=== PATIENT | male | born 1965 | race American Indian/Alaskan Native ===

== ENCOUNTER 2020-12-06 19:50 | Emergency (ER) | payer SELFPAY ==
[2020-12-07 01:46] VITALS: BP 133/77
[2020-12-07 01:53] LABS: Bilirubin,Urine NEG (Negative); Blood,Urine SM (Negative); Color,Urine Yellow (Yellow); Mucus,Urine FEW /HPF; Protein,Urine <15 mg/dL mg/dL (Negative); RBC,Urine < 1.0 /HPF (0.0-6.0); Urobilinogen,Urine < 2.0 mg/dL (<2.0); WBC,Urine < 1.0 /HPF (0.0-6.0)
[2020-12-07 01:59] LABS: Amphetamine Screen,Urine Negative; Benzodiazepines Screen,Urine Negative; Cannabinoid Screen,Urine Negative; Cocaine Screen,Urine Negative; Methadone Screen,Urine Negative; Opiate Screen,Urine Negative
[2020-12-07 02:33] LABS: Blood Urea Nitrogen 5 mg/dL (9-20); Calcium 9.8 mg/dL (8.4-10.2); Hemolysis Index 7
[2020-12-07 02:48] LABS: BUN/Creatinine Ratio 8; Basophils # (Auto) 0.1 K/mm3 (0.0-0.1); Eosinophils # (Auto) 0.4 K/mm3 (0.0-0.4); Eosinophils % (Auto) 5.4 % (0.0-4.3); Lymphocytes # (Auto) 2.2 K/mm3 (1.2-5.4); Lymphocytes % (Auto) 30.1 % (13.4-35.0); Mean Corpuscular HGB Conc 36 % (32-34); Mean Corpuscular Volume 92 fl (84-94); Monocytes # (Auto) 0.8 K/mm3 (0.0-0.8); Monocytes % (Auto) 10.9 % (0.0-7.3); Platelet Count 249 K/mm3 (140-440); Red Blood Count 5.11 M/mm3 (3.65-5.03)
--- NOTE | 2020-12-07 03:12 | Emergency Department Report ---
ED Medical Clearance HPI - General Chief complaint: Medical Clearance Stated complaint: DETOX Source: patient Mode of arrival: Ambulatory - History of Present Illness Initial comments: Patient is a 55-year-old white male with a history of hypertension, hyperlipidemia, chronic alcohol abuse, anxiety and depression who presents to the ED for medical clearance in order to be admitted for alcohol detox program at the [facility]. Patient states that he already has an admission at the facility and was advised to come to the ED for medical clearance prior his start of the detox program. Patient denies chest pain, shortness of breath, fever, chills, cough, headache, dizziness, syncope, traumatic injury, suicidal or homicidal ideations or hallucinations. Complaint: medical clearance request (For alcohol detox program) -: Gradual, year(s) (Chronic many years) Reason for Medical Clearance: intoxication, psychiatric condition (Chronic alcohol abuse) Place: home Alledged Intoxication: Yes Compliant with Home Medications: No Traumatic Symptoms: denies traumatic injury Associated Symptoms: denies: chest pain, shortness of breath, palpitations, diaphoresis, denies other symptoms, confusion, cough, headaches, anorexia Treatments Prior to Arrival: none Allergies/Adverse reactions: Allergies Allergy/AdvReac Type Severity Reaction Status Date / Time No Known Allergies Allergy Unverified 12/07/20 01:27 ED Review of Systems ROS: Stated complaint: DETOX Other details as noted in HPI Constitutional: denies: chills, fever Eyes: denies: eye pain, eye discharge, vision change ENT: denies: ear pain, throat pain Respiratory: denies: cough, shortness of breath, wheezing Cardiovascular: denies: chest pain, palpitations Endocrine: no symptoms reported Gastrointestinal: denies: abdominal pain, nausea, vomiting, diarrhea Genitourinary: denies: urgency, dysuria Musculoskeletal: denies: back pain, joint swelling, arthralgia Skin: denies: rash, lesions Neurological: denies: headache, weakness, paresthesias Psychiatric: anxiety, other (Chronic alcohol abuse). denies: depression Hematological/Lymphatic: denies: easy bleeding, easy bruising ED Past Medical Hx - Past Medical History Previous Medical History?: Yes Hx Hypertension: Yes Hx Psychiatric Treatment: Yes (Chronic alcohol abuse and anxiety) Additional medical history: hyperlipidemia - Surgical History Past Surgical History?: No - Social History Smoking Status: Current Every Day Smoker Substance Use Type: Alcohol ED Physical Exam - General Limitations: No Limitations General appearance: alert, in no apparent distress - Head Head exam: Present: atraumatic, normocephalic, normal inspection - Eye Eye exam: Present: normal appearance, PERRL, EOMI Pupils: Present: normal accommodation - ENT ENT exam: Present: normal exam, normal orophraynx, mucous membranes moist, TM's normal bilaterally, normal external ear exam - Neck Neck exam: Present: normal inspection, full ROM - Respiratory Respiratory exam: Present: normal lung sounds bilaterally. Absent: respiratory distress, wheezes, rales, rhonchi, chest wall tenderness, accessory muscle use, decreased breath sounds, prolonged expiratory - Cardiovascular Cardiovascular Exam: Present: regular rate, normal rhythm, normal heart sounds. Absent: systolic murmur, diastolic murmur, rubs, gallop - GI/Abdominal GI/Abdominal exam: Present: soft, normal bowel sounds. Absent: tenderness, hyperactive bowel sounds, hypoactive bowel sounds - Extremities Exam Extremities exam: Present: normal inspection, full ROM, normal capillary refill - Back Exam Back exam: Present: normal inspection, full ROM. Absent: tenderness, CVA tenderness (R), CVA tenderness (L), muscle spasm, paraspinal tenderness, vertebral tenderness - Neurological Exam Neurological exam: Present: alert, oriented X3, CN II-XII intact, normal gait, reflexes normal - Psychiatric Psychiatric exam: Present: normal mood, anxious, flat affect - Skin Skin exam: Present: warm, dry, intact, normal color. Absent: rash ED Course Vital Signs 12/07/20 01:24 Temperature 98.4 F Pulse Rate 86 Respiratory 18 Rate Blood Pressure 133/77 O2 Sat by Pulse 95 Oximetry ED Medical Decision Making - Lab Data Result diagrams: 12/07/20 01:57 12/07/20 01:57 - Medical Decision Making This is a 55-year-old white male with a history of hypertension, hyperlipidemia, chronic alcohol abuse, anxiety and depression who presents to the ED for medical clearance in order to be admitted for alcohol detox program at the [facility]. Patient states that he already has an admission at the facility and was advised to come to the ED for medical clearance prior his start of the detox program. In the ED, patient is alert and oriented x3 and is not in any distress. Patient is hemodynamically stable. Lab test results were reviewed and are all nonactionable except for elevated serum alcohol level 2 210 mg/dL. Patient has been admitted for an alcohol detox program at the [facility]. Patient was therefore medically cleared for admission to the alcohol detox program at the [facility]. At the time of patient discharge from the ED, patient is alert and oriented x3, walking steadily with no difficulty, and is neurologically intact. Patient was advised to return to the ED immediately if symptoms get worse. - Differential Diagnosis Chronic alcoholism; anxiety and depression ED Disposition Clinical Impression: Chronic alcohol abuse, Medical clearance for psychiatric admission Disposition: DC-01 TO HOME OR SELFCARE Is pt being admited?: No Does the pt Need Aspirin: No Condition: Stable Instructions: Alcohol Intoxication, [id number], Alcohol Abuse and Dependence Information, Adult Additional Instructions: All lab test results were reviewed and are all nonactionable. You are therefore medically cleared for alcohol detox program. Return to the ED immediately if symptoms get worse. Referrals: [facility] [Outside] - 3-5 Days Time of Disposition: 03:12 Print Language: SLOVENIAN
== END 2020-12-07 04:08 | disposition home or self-care (01) ==
LOC: ED 19:50
DX: F10.10 Alcohol abuse, uncomplicated (principal); I10 Essential (primary) hypertension; E78.5 Hyperlipidemia, unspecified; F41.9 Anxiety disorder, unspecified; F17.200 Nicotine dependence, unspecified, uncomplicated; Z00.8 Encounter for other general examination
CPT/HCPCS: 36415; 80048; 80307; 80320; 81001; 85025; G0480